=== PATIENT | female | born 1995 | race Caucasian/White ===

== ENCOUNTER → 2016-10-04 | Outpatient (CLI) | payer OTHER ==
[~2016-10-04] MED LIST: No Home Meds
--- NOTE | 2016-10-05 05:10 | REP ---
Clinical: Anatomical evaluation. Comparison: None . Findings: Examination demonstrates a single live intrauterine in cephalic presentation. motion is identified by technologist. Placenta is noted anteriorly and grade zero without evidence for placenta previa or abruption. Amniotic fluid volume is normal. Cervix measures 3.1 cm in length and appears closed. No evidence for nuchal cord. Gestational age by LMP 17 weeks 4 days with BRIANNA 03/10/2017 . Gestational age by current measurements 21 weeks 0 days with BRIANNA 02/14/2017 . FHR equals 131 beats per minute. BPD 5.0 cm 21 weeks 0 days HC 19.1 cm 21 weeks 2 days AC 15.7 cm 20 weeks 6 days FL 3.3 cm 20 weeks 3 days HL 3.3 cm 21 weeks 0 days HC/AC ratio 1.21 Estimated weight 373 grams ( 40th percentile). Anatomical assessment demonstrates normal structures including cranium, choroid plexus, cavum, cerebellum/posterior fossa, facial features, lungs, four-chamber heart/ventricular outflow tracts, diaphragm, stomach, cord insertion/three-vessel cord, kidneys/bladder, spine, and extremities. Impression: Single live intrauterine in cephalic presentation. Anatomical assessment is complete and normal. Signed by Ho Temple MD 10/05/2016 05:02 A
== END ==
LOC: M RAD 15:48
PROVIDERS: ATTEND Obstetrics & Gynecology
DX: Z36 Encounter for antenatal screening of mother (principal); Z3A.21 21 weeks gestation of pregnancy

== ENCOUNTER 2017-02-09 01:51 | Inpatient (IN) | payer OTHER ==
[2017-02-09] VITALS (32 sets, daily range): BP systolic 107–150; BP diastolic 56–95
[~2017-02-09] VITALS: Ht 165.1 cm; Wt 75.0 kg
[2017-02-09] MEDS ORDERED: PENICILLIN G POTASSIUM 5 MU VIAL As Ordered ONE (02:30)
[2017-02-09] MEDS ORDERED: LACTATED RINGER'S 1000 ML IV STA (02:35)
[2017-02-09] MEDS ORDERED: PENICILLIN G POTASSIUM IV 5 MU in D5W MINI-BAG PLUS 100 ML IV STA (02:35)
[2017-02-09 02:38] LABS: MEAN CORPUSCULAR HEMOGLOBIN 35.7 pg (27.0-33.0); MEAN CORPUSCULAR HGB CONC 34.8 g/dl (32.0-36.5); MEAN CORPUSCULAR VOLUME 102.5 fl (80.0-96.0); RED CELL DISTRIBUTION WIDTH 13.3 % (11.5-14.5); WHITE BLOOD COUNT 8.2 K/mm3 (4.0-10.0)
[2017-02-09] MEDS ORDERED: PRENTAB55 PO (02:41)
[2017-02-09] MEDS ORDERED: FENTANYL 2MCG/ML ROPIVACAINE 0.2% IN 0.9% NACL 200ML IVBAG As Ordered ONE (02:56)
[2017-02-09] MEDS ORDERED: EPIDURAL/PCA KEYS XX PRN (03:25)
[2017-02-09] MEDS ORDERED: ONDANSETRON 4MG/2ML VIAL (J2405) IV PRN ×3 (03:25→21:15)
[2017-02-09] MEDS ORDERED: ePHEDrine SULFATE 25 MG/5 ML(5MG/ML) SYRINGE IV PRN (03:25)
[2017-02-09] MEDS ORDERED: diphenhydrAMINE INJ 50MG/ML VIAL (J1200) IV PRN (03:25)
[2017-02-09] MEDS ORDERED: FENTANYL/ROPIVACAINE/NACL BAG 200 ML EPIDURAL SCH (03:25)
[2017-02-09] MEDS ORDERED: NALOXONE INJ 0.4 MG/1 ML VIAL (J2310) IV PRN (03:25)
[2017-02-09] MEDS ORDERED: REFRIGERATOR IV KEYS XX PRN (03:25)
[2017-02-09] MEDS ORDERED: EPIDURAL COMMENT XX SCH (03:25)
[2017-02-09] MEDS ORDERED: OXYTOCIN 30 UNITS IN 0.9% NaCl 500ML IV BAG (J2590) As Ordered ONE (07:04)
[2017-02-09] MEDS: PENICILLIN G POTASSIUM IV 2.5 MU in D5W 100 ML IV SCH ×2 (07:19→10:45)
--- NOTE | 2017-02-09 09:14 | IPNPDOC ---
Text Note Date of Service The patient was seen on 02/09/17. NOTE SBAR from Dr Ashton ~[id number]. Chart reviewed. Has an epidural NST Cat 1 Cx C/C/+2/LOP Start pushing Sessions Jose HARRIS, I+O VSJose I+O Laboratory Tests 02/09/17 02:32 Red Blood Count 2.87 L, Mean Corpuscular Volume 102.5 H, Mean Corpuscular Hemoglobin 35.7 H, Mean Corpuscular Hemoglobin Concent 34.8, Red Cell Distribution Width 13.3 Vital Signs Date Time Temp Pulse Resp B/P (MAP) Pulse Ox O2 Delivery O2 Flow Rate FiO2 02/09/17 08:11 79 18 117/71 (86) 02/09/17 07:11 99.3 I&O- Last 24 Hours up to 6 AM 02/09/17 06:00 Intake Total 180 ml Output Total 800 ml Balance -620 ml SESSIONS,ERIKA Arce MD Feb 09, 2017 09:14
--- NOTE | 2017-02-09 10:58 | DNPDOC ---
[facility] Delivery Note Delivery Note DATE OF DELIVERY: [id number] PREDELIVERY DIAGNOSIS: 38+6/7 weeks' gestation and labor. POST DELIVERY DIAGNOSIS: Delivered. PROCEDURE: Spontaneous vaginal delivery BLOOD BANK LABORATORY PROFESSIONAL: Dr. Lewis ANESTHESIA: Epidural ESTIMATED BLOOD LOSS: 300 mL. FINDINGS: 7 pound 6 ounce male infant, Score 8/9 DELIVERY SUMMARY: Good effort against a very tight perineum. Mod'd ritgen needed, uncomplicated. No signif delay of the vtx or either shoulder. To abd, vigorous. Cord C/C by FOB. Placenta intact with slight traction and fundal massage. Pit going wide open, fundus firm. Bilat inner labial longitudinal lacs repaired with 4-0 vicryl in standard running fashion. Perineum intact. Good cosmesis/hemostasis. Chadwick LEWIS,ERIKA Arce MD Feb 09, 2017 10:58
[2017-02-09] MEDS ORDERED: MEASLES,MUMPS,RUBELLA VACCINE INJ (MMR-II) (90707) SC SCH (11:45)
[2017-02-09] MEDS ORDERED: METOCLOPRAMIDE INJ 10MG/2ML VIAL (J2765) IV PRN (11:45)
[2017-02-09] MEDS ORDERED: ACETAMINOPHEN TAB 650MG DOSE (2X325MG) PO PRN (11:45)
[2017-02-09] MEDS ORDERED: RHOGAM 300 MCG (1500 IU) INJ (J2790) IM SCH (11:45)
[2017-02-09] MEDS ORDERED: DIBUCAINE 1% OINTMENT 30GM TOP PRN (11:45)
[2017-02-09] MEDS ORDERED: OXYTOCIN DRIP 30 UNITS in APPROPRIATE DILUENT 1 EA IV SCH (11:45)
[2017-02-09] MEDS: IBUPROFEN 800 MG TAB PO PRN (12:49)
[2017-02-09 19:23] LABS: MEAN CORPUSCULAR HEMOGLOBIN 36.2 pg (27.0-33.0); MEAN CORPUSCULAR HGB CONC 35.3 g/dl (32.0-36.5); MEAN CORPUSCULAR VOLUME 102.6 fl (80.0-96.0); RED CELL DISTRIBUTION WIDTH 13.2 % (11.5-14.5); WHITE BLOOD COUNT 13.1 K/mm3 (4.0-10.0)
--- NOTE | 2017-02-09 19:29 | IPNPDOC ---
Text Note Date of Service The patient was seen on 02/09/17. NOTE Called by floor nursing approx 2 hr's ago and told that Pt had not voided yet and that she was swollen (no significant swelling at time of delivery/repair), I rec'd a straight cath and a new DTV 6 hrs (routine). They called again a bit later and pt with significant discomfort now, worsening bilat external swelling and I asked them to place a Gimenez and get a CBC and told them I was coming in. On exam, she has stable vitals but is in obvious discomfort. Bilat labial swelling noted that is significant compared to just after delivery. Also some old clot present at the introitus that I removed, and some further clot behind it, but she could not tolerate a bimanual exam or vaginal/uterine sweep, nor could she tolerate the labial separation that I would need to place a Gimenez. Therefore I rec'd we go the OR for an EUA and Gimenez placement and ultrasound, perhaps D&C if significant IU blood present or active bleeding, perhaps hematoma evacuation if one is located (low suspicion of this, swelling is bilat and encompasses the entire EFG). Stat CBC ordered and also confirmed that her T &S is still good in case of need for T&C/transfusion. Informed consent obtained , all ??'s answered by she and . Chadwick MEJIA VSJose, I+O VSJose I+O Laboratory Tests 02/09/17 02:32 Red Blood Count 2.87 L, Mean Corpuscular Volume 102.5 H, Mean Corpuscular Hemoglobin 35.7 H, Mean Corpuscular Hemoglobin Concent 34.8, Red Cell Distribution Width 13.3 Vital Signs Date Time Temp Pulse Resp B/P (MAP) Pulse Ox O2 Delivery O2 Flow Rate FiO2 02/09/17 17:40 98.2 67 18 141/95 (110) I&O- Last 24 Hours up to 6 AM 02/09/17 06:00 Intake Total 180 ml Output Total 800 ml Balance -620 ml ERIKA LEWIS MD Feb 09, 2017 19:29
[2017-02-09] MEDS ORDERED: MIDAZOLAM INJ 2 MG/2 ML VIAL (J2250) As Ordered ONE (20:08)
[2017-02-09] MEDS ORDERED: fentaNYL 100 MCG/2 ML INJECTION (J3010) As Ordered ONE (20:08)
[2017-02-09] MEDS ORDERED: LIDOCAINE 2% INJ 100 MG/5 ML SYRINGE As Ordered ONE (20:08)
[2017-02-09] MEDS ORDERED: dexameTHASONE 4 MG/ML 1ML VIAL (J1100) As Ordered ONE (20:08)
[2017-02-09] MEDS ORDERED: ONDANSETRON 4MG/2ML VIAL (J2405) As Ordered ONE (20:08)
[2017-02-09] MEDS ORDERED: PROPOFOL 200 MG/20 ML VIAL As Ordered ONE (20:08)
[2017-02-09] MEDS ORDERED: KETOROLAC 60 MG/2 ML VIAL (J1885) As Ordered ONE (20:08)
[2017-02-09] MEDS ORDERED: ESTROGENS VAGINAL CREAM 30GM As Ordered ONE (20:28)
[2017-02-09] MEDS ORDERED: miSOPROStol 200 MCG TAB (S0191) As Ordered ONE ×2 (20:33→20:34)
[2017-02-09] MEDS: DOCUSATE SODIUM 100 MG CAP PO SCH (21:00)
[2017-02-09] MEDS ORDERED: MEPERIDINE INJ 25 MG/ML VIAL (J2175) As Ordered ONE (21:07)
[2017-02-09] MEDS: MEPERIDINE INJ 25 MG/ML VIAL (J2175) IV PRN ×2 (21:10→21:15)
[2017-02-09] MEDS ORDERED: fentaNYL 100 MCG/2 ML INJECTION (J3010) IV PRN (21:15)
[2017-02-09] MEDS ORDERED: LR 1,000 ML IV SCH (21:15)
[2017-02-09] MEDS ORDERED: PERCOCET 5MG/325MG TAB PO PRN (21:15)
[2017-02-09] MEDS ORDERED: miSOPROStol 200 MCG TAB (S0191) PR ONE (21:30)
[2017-02-09] MEDS: LR 1,000 ML IV SCH (22:26)
[2017-02-09] MEDS ORDERED: MORPHINE 10 MG/ML 1ML VIAL IM ONE (22:30)
[2017-02-10] VITALS (7 sets, daily range): BP systolic 119–139; BP diastolic 74–85
[2017-02-10 00:20] LABS: BASO % 0.1 % (0.0-1.0); EOS % 0.2 % (0.0-3.0); LARGE UNSTAINED CELL # 0.1 K/mm3 (0.0-0.4); LARGE UNSTAINED CELL % 0.7 % (0.0-4.0); LYMPH # 1.3 K/mm3 (1.5-6.5); LYMPH % 9.3 % (24.0-44.0); MEAN CORPUSCULAR HEMOGLOBIN 36.3 pg (27.0-33.0); MEAN CORPUSCULAR VOLUME 103.6 fl (80.0-96.0); MONO # 0.3 K/mm3 (0.0-0.8); MONO % 2.1 % (0.0-5.0); NEUTROPHILS # 11.6 K/mm3 (1.8-7.7); NEUTROPHILS % 87.6 % (36.0-66.0); PLATELET COUNT, AUTOMATED 197 k/mm3 (150-450); RED CELL DISTRIBUTION WIDTH 13.4 % (11.5-14.5); WHITE BLOOD COUNT 13.3 K/mm3 (4.0-10.0)
[2017-02-10] MEDS: IBUPROFEN 800 MG TAB PO PRN ×3 (01:53→21:04)
[2017-02-10] MEDS: LR 1,000 ML IV SCH ×2 (04:34→13:30)
[2017-02-10] MEDS: PERCOCET 5MG/325MG TAB PO PRN ×3 (06:33→16:38)
[2017-02-10 07:01] LABS: MEAN CORPUSCULAR HEMOGLOBIN 36.1 pg (27.0-33.0); MEAN CORPUSCULAR HGB CONC 34.7 g/dl (32.0-36.5); RED CELL DISTRIBUTION WIDTH 13.5 % (11.5-14.5); WHITE BLOOD COUNT 10.3 K/mm3 (4.0-10.0)
--- NOTE | 2017-02-10 08:25 | IPNPDOC ---
Text Note Date of Service The patient was seen on 02/10/17. NOTE PPD#1 POD#1 s/p but then c/b a PPH with a D&C and left labial hematoma evacuation/ closure approx 10 hrs p delivery S: Pt states doing well but has not been OOB yet since her surgery last night. Pain controlled with Motrin/Percocet, lochia decreasing, Gimenez in place, tolerating a regular diet. No f/c/n/v/MARQUEZ. Breast feeding. O: normotensive, nml HR, afebrile H: RRR no m/g/r L: CTA b/l no w/c/r/r Abd: soft, appropriately tender, and FF at U-1/fundus slight tenderness Ext: no c/c/e EFG: Both labia swollen same as last night after surgery, R>L, not increased in size however. Vag packing removed and expected amt lochia noted to egress UO adequate last 4 hrs, 600, last hour 75 cc's This AM HGB 6.6, HCT 18.9, PLT 181 A/P: S/P c/b a PPH with a D&C and left labial hematoma evacuation/closure approx 10 hrs p delivery, PPD#1, POD#1 (last evening). afebrile, good pain control. -Transfuse 2 units PRBC's with CBC 6 hrs after -Premedicate with 325 tylenol and 50 benadryl PO, had a single percocet 1 hr ago -Routine care, ambulate today after transfusion -will continue to monitor - likely discharge home tomorrow Sessions Jose HARRIS I+O Jose ROMERO I+O Laboratory Tests 02/09/17 19:17 Red Blood Count 2.44 L, Mean Corpuscular Volume 102.6 H, Mean Corpuscular Hemoglobin 36.2 H, Mean Corpuscular Hemoglobin Concent 35.3, Red Cell Distribution Width 13.2 02/10/17 00:11 Red Blood Count 2.10 L, Mean Corpuscular Volume 103.6 H, Mean Corpuscular Hemoglobin 36.3 H, Mean Corpuscular Hemoglobin Concent 35.0, Red Cell Distribution Width 13.4, Neutrophils (%) (Auto) 87.6 H, Lymphocytes (%) (Auto) 9.3 L, Monocytes (%) (Auto) 2.1, Eosinophils (%) (Auto) 0.2, Basophils (%) (Auto ) 0.1, Neutrophils # (Auto) 11.6 H, Lymphocytes # (Auto) 1.3 L, Monocytes # ( Auto) 0.3, Eosinophils # (Auto) 0.0, Basophils # (Auto) 0.0 02/10/17 06:38 Red Blood Count 1.82 L, Mean Corpuscular Volume 104.0 H, Mean Corpuscular Hemoglobin 36.1 H, Mean Corpuscular Hemoglobin Concent 34.7, Red Cell Distribution Width 13.5 Vital Signs Date Time Temp Pulse Resp B/P (MAP) Pulse Ox O2 Delivery O2 Flow Rate FiO2 02/10/17 07:03 18 02/10/17 06:33 Room Air 02/10/17 06:00 98.1 73 125/77 (93) 97 02/09/17 20:52 2 I&O- Last 24 Hours up to 6 AM 02/10/17 05:59 Intake Total 1250 ml Output Total 4925 ml Balance -3675 ml SESSIONS,ERIKA Arce MD Feb 10, 2017 08:25
[2017-02-10] MEDS ORDERED: diphenhydrAMINE 25 MG CAP PO ONE (08:30)
[2017-02-10] MEDS: PRENATAL VITAMINS CHEWABLE TABLET PO SCH (08:43)
[2017-02-10] MEDS: DOCUSATE SODIUM 100 MG CAP PO SCH ×2 (08:43→21:00)
[2017-02-10] MEDS ORDERED: ACETAMINOPHEN 325 MG TAB PO ONE (08:45)
[2017-02-10 18:59] LABS: MEAN CORPUSCULAR HEMOGLOBIN 33.7 pg (27.0-33.0); MEAN CORPUSCULAR HGB CONC 34.4 g/dl (32.0-36.5); RED CELL DISTRIBUTION WIDTH 16.2 % (11.5-14.5); WHITE BLOOD COUNT 11.4 K/mm3 (4.0-10.0)
--- NOTE | 2017-02-10 19:55 | IPNPDOC ---
Text Note Date of Service The patient was seen on 02/10/17. NOTE After 2 Units PRBC's, HCT up to 24.7, PLT 185. Expected increase. Pt feels much better. UO is stellar and she has ambulated several times although is still very stiff, guarded due to her labia being very swollen/sore. VSS, T 100.0 after transfusion noted (common), Labia still swollen bilat R>L although slight improvement noted and the tissue is starting to soften, skin not as taut as this AM/last night. Can remove one IV and saline lock her other. PLan on CBC in the AM, maintain carpio due to level of swelling, would likely not be able to void. Sessions MD ROMERO,Jose, I+O VS, Jose I+O Laboratory Tests 02/10/17 00:11 Red Blood Count 2.10 L, Mean Corpuscular Volume 103.6 H, Mean Corpuscular Hemoglobin 36.3 H, Mean Corpuscular Hemoglobin Concent 35.0, Red Cell Distribution Width 13.4, Neutrophils (%) (Auto) 87.6 H, Lymphocytes (%) (Auto) 9.3 L, Monocytes (%) (Auto) 2.1, Eosinophils (%) (Auto) 0.2, Basophils (%) (Auto ) 0.1, Neutrophils # (Auto) 11.6 H, Lymphocytes # (Auto) 1.3 L, Monocytes # ( Auto) 0.3, Eosinophils # (Auto) 0.0, Basophils # (Auto) 0.0 02/10/17 06:38 Red Blood Count 1.82 L, Mean Corpuscular Volume 104.0 H, Mean Corpuscular Hemoglobin 36.1 H, Mean Corpuscular Hemoglobin Concent 34.7, Red Cell Distribution Width 13.5 02/10/17 18:45 Red Blood Count 2.52 L, Mean Corpuscular Volume 98.0 #H, Mean Corpuscular Hemoglobin 33.7 H, Mean Corpuscular Hemoglobin Concent 34.4, Red Cell Distribution Width 16.2 H Vital Signs Date Time Temp Pulse Resp B/P (MAP) Pulse Ox O2 Delivery O2 Flow Rate FiO2 02/10/17 18:22 99.5 72 20 131/85 (100) 96 Room Air 02/09/17 20:52 2 I&O- Last 24 Hours up to 6 AM 02/10/17 05:59 Intake Total 1250 ml Output Total 4925 ml Balance -3675 ml DEBBIE,ERIKA Arce MD Feb 10, 2017 19:54
[2017-02-11 01:55] VITALS: BP 145/83
[2017-02-11] MEDS: IBUPROFEN 800 MG TAB PO PRN ×3 (05:28→23:10)
[2017-02-11 06:33] VITALS: BP 140/90
--- NOTE | 2017-02-11 06:50 | IPNPDOC ---
Text Note Date of Service The patient was seen on 02/11/17. NOTE PPD#2 POD#2 s/p but then c/b a PPH with a D&C and left labial hematoma evacuation/ closure approx 10 hrs p delivery s/p 2 units PRBC's yest. S: Pt states doing well, pain improved, has not been OOB and ambulatory. Pain controlled with Motrin, lochia decreasing, Carpio in place, tolerating a regular diet. No f/c/n/v/MARQUEZ. Breast feeding with small amt bottle supplementation. O: normotensive, nml HR, afebrile Abd: soft, appropriately tender, and FF at U-3 Ext: no c/c/e EFG: Both labia significantly improved but swelling still present, color is less red and skin is less taut, smaller in size as well UO adequate CBC pending this AM A/P: S/P c/b a PPH with a D&C and left labial hematoma evacuation/closure approx 10 hrs p delivery with 2 units blood yest. afebrile, good pain control. -Routine care, encourage ambulation -Cont carpio until tomorrow morning -will continue to monitor -likely discharge home tomorrow if passes DTV Sessions VS,Jose I+O VSJose I+O Laboratory Tests 02/10/17 18:45 Red Blood Count 2.52 L, Mean Corpuscular Volume 98.0 #H, Mean Corpuscular Hemoglobin 33.7 H, Mean Corpuscular Hemoglobin Concent 34.4, Red Cell Distribution Width 16.2 H Vital Signs Date Time Temp Pulse Resp B/P (MAP) Pulse Ox O2 Delivery O2 Flow Rate FiO2 02/11/17 06:33 98.4 67 16 140/90 (107) 02/11/17 00:51 98 02/10/17 18:22 Room Air 02/09/17 20:52 2 I&O- Last 24 Hours up to 6 AM 02/11/17 06:00 Intake Total 1490 ml Output Total 5725 ml Balance -4235 ml SESSIONS,ERIKA Arce MD Feb 11, 2017 06:50
[2017-02-11 06:52] LABS: MEAN CORPUSCULAR HEMOGLOBIN 35.1 pg (27.0-33.0); MEAN CORPUSCULAR VOLUME 95.5 fl (80.0-96.0); RED CELL DISTRIBUTION WIDTH 15.9 % (11.5-14.5); WHITE BLOOD COUNT 11.3 K/mm3 (4.0-10.0)
[2017-02-11 07:00] LABS: MEAN CORPUSCULAR HGB CONC 36.7 g/dl (32.0-36.5)
[2017-02-11] MEDS: DOCUSATE SODIUM 100 MG CAP PO SCH ×2 (09:49→21:27)
[2017-02-11] MEDS: PRENATAL VITAMINS CHEWABLE TABLET PO SCH (09:49)
[2017-02-11 10:00] VITALS: BP 137/89
[2017-02-11] MEDS ORDERED: SLF 3 ML SYR IV PRN (10:45)
--- NOTE | 2017-02-11 11:08 | RO ---
DATE OF PROCEDURE: 02/09/2017 PREOPERATIVE DIAGNOSIS: hemorrhage and need for exam, ultrasound under anesthesia. POSTOPERATIVE DIAGNOSIS: hemorrhage, left labial hematoma. PROCEDURE: 1. Uterine cavity curettage. 2. Left and right laceration revisions. 3. Left labial hematoma evacuation and closure. FINDINGS: In the operating room on ultrasound had a 5 cm separation consistent with clot in the uterus with approximately 100 mL evacuated from the uterus. About 200 mL were evacuated from the vagina. Also present was an unstable left labial hematoma and a stable right labial hematoma. SURGEON: Mario Genao MD OCCUPATIONAL THERAPY AIDES TEACHER: ANESTHESIA: General endotracheal. ESTIMATED BLOOD LOSS: 300 mL. DRAINS: Gimenez catheter with 1000 mL of cb urine at the end of the case. FLUID REPLACEMENT: 1000 mL of Lactated Ringer's. ANTIBIOTICS: No preoperative antibiotics. SPECIMENS: None. INDICATION: The patient had an uncomplicated and straight forward routine vaginal delivery with small longitudinal interlabial lacerations bilaterally that were repaired in a normal fashion directly after delivery in order to assist the mother in not having to much pain with urination. At the time of delivery, neither laceration was bleeding and there was no swelling at all of the vagina or the labia at time of pushing or delivery. Surprisingly, approximately 6-8 hours after delivery I was called for the patient being unable to void and with significant swelling of her labia noted by the nurse. The nurse was unable to do a straight cath and due to the patient's discomfort and significant labial edema , I was asked to examine the patient. I did so and noted a significant amount of clots sitting at the introitus as well. I did a limited exam due to the patient's discomfort and realized that the clot was tracking from the vaginal orifice all the way up into the vagina and likely into the uterus as well. I also saw that with the amount of swelling present there was very likely a hematoma somewhere, although I could not tell the exact location in the room due to the patient's discomfort. Therefore, informed consent was obtained for an exam under anesthesia and any and all procedures based on my findings at that time. Consent for transfusion as well was discussed and obtained. DESCRIPTION OF PROCEDURE: The patient was taken to the operating room with an IV in place, placed in the low lithotomy position. A second IV was placed at this time. She was prepped and draped in a normal sterile fashion and prior to starting the case, I did a quick abdominal ultrasound which revealed approximately 5 cm of uterine wall separation and obvious clot in the uterine cavity. I placed a speculum into the vagina and with ringed forceps was able to remove approximately 200 mL of clot from the vagina and the cervical opening. A tenaculum was placed on the anterior lip of the cervix and a 12 mm curved suction curette was placed into the uterine cavity. I confirmed with the ultrasound that it was in the correct location and I did so by holding onto the probe through the blue drape with gel already placed there prior to placing the blue drape. I then engaged the suction and approximately 100 mL of clot was removed from the uterine cavity. There was no brisk bleeding from the uterus. It was obviously all old blood clots. I confirmed then with ultrasound again that the separation of the anterior and posterior endometrial surfaces was approximately 1.5 cm with no further significant blood clots present. I then introduced a banjo curette and did a gentle sharp curettage of all surfaces of the uterus to the fundus and out. This was uncomplicated and did not produce much in the way of clot or debris. I removed the tenaculum and then turned my attention to the labia. Both labia were significantly swollen, however the patient's right side was soft and other than a very small area at the posterior aspect of the closure, the prior labial laceration closure there was no significant collection of blood clot or bleeding. A single figure-of-8 suture using #3-0 Vicryl at the posterior aspect of the right labial laceration produced hemostasis and although it was swollen there was nothing palpable or visible involving the right labia. The left labia was significantly more edematous and there was a significant amount of clot coming out the posterior aspect of the aforementioned labial laceration closure. I opened this closure completely and several edges were noted to be bleeding, which were deep to the skin edges. Of note, these areas were not bleeding whatsoever at the time of reapproximation of the ruptured inner wall of the left labia directly after delivery. This potential space also tracked up approximately half of my pinky to up around the left side of the clitoris. All the clot in this area was evacuated. The edges were scrubbed clean with a Ray-Shukri sponge and I closed the space with a few interrupted sutures of #3- 0 Vicryl taking care to stay away from the clitoris and surrounding tissue. Once the space was closed I then ran suture from superior to inferior effectively closing off the hematoma area. Hemostasis and good cosmesis noted bilaterally at the end of the case. I performed one last ultrasound of the uterus prior to finishing the case and again noted an endometrial stripe and thickness of approximately 1.3 cm, no significant amount of debris or clot in the uterine cavity all the way to the fundus. Hemostasis was noted from all surgical surfaces. The vagina was clear and the swelling bilaterally was noted to be significantly less, especially on the patient's left. 600 mcg cytotec placed per rectum at the end of the case. All instruments were removed from the vagina. The patient was awakened from general anesthesia and transferred to the postanesthesia care unit (PACU) in stable condition with a Gimenez catheter placed at the end of the case. All counts were correct at the end of the case including sponge, needle and instruments. JACK
[2017-02-11 14:00] VITALS: BP 139/83
[2017-02-11] MEDS: SLF 3 ML SYR IV SCH ×2 (14:08→22:00)
[2017-02-11 18:00] VITALS: BP 136/92
[2017-02-11 22:33] VITALS: BP 122/64
[2017-02-12 02:02] VITALS: BP 135/74
[2017-02-12] MEDS: IBUPROFEN 800 MG TAB PO PRN (06:00)
[2017-02-12] MEDS: SLF 3 ML SYR IV SCH (06:00)
--- NOTE | 2017-02-12 07:48 | IPNPDOC ---
Text Note Date of Service The patient was seen on 02/12/17. NOTE PPD#3 POD#3 s/p but then c/b a PPH with a D&C and left labial hematoma evacuation/ closure approx 10 hrs p delivery s/p 2 units PRBC's on POD1 S: Pt states doing well, pain cont's to improve, has been OOB and ambulatory. Pain controlled with Motrin/rare percocet, lochia decreasing, Carpio in place, tolerating a regular diet. No f/c/n/v/MARQUEZ. Breast feeding with small amt bottle supplementation. O: normotensive, nml HR, afebrile Abd: soft, appropriately tender, and FF at U-3 Ext: no c/c/e EFG: Both labia significantly improved but swelling still present, color is less red and skin is less taut, smaller in size as well, R>L UO adequate CBC yest HCT 25, stable A/P: S/P c/b a PPH with a D&C and left labial hematoma evacuation/closure approx 10 hrs p delivery with 2 units blood. afebrile, good pain control. -d/c carpio, if meets 6 hr DTV today can be discharged Sessions VSJose I+O Jose ROMERO I+O Vital Signs Date Time Temp Pulse Resp B/P (MAP) Pulse Ox O2 Delivery O2 Flow Rate FiO2 02/12/17 06:00 98.0 70 18 99 Room Air 02/12/17 02:02 135/74 (94) 02/09/17 20:52 2 I&O- Last 24 Hours up to 6 AM 02/12/17 06:00 Intake Total 525 ml Output Total 3875 ml Balance -3350 ml DEBBIE,ERIKA Arce MD Feb 12, 2017 07:48
[2017-02-12] MEDS: PRENATAL VITAMINS CHEWABLE TABLET PO SCH (08:11)
[2017-02-12] MEDS: DOCUSATE SODIUM 100 MG CAP PO SCH (08:11)
[2017-02-12] MEDS ORDERED: COLA100C5 PO (10:28)
[2017-02-12] MEDS ORDERED: IBUP-1114 PO (10:28)
[2017-02-12] MEDS ORDERED: OXYC1TAB23 PO (10:28)
[2017-02-12] MEDS ORDERED: ACET50TA PO (10:28)
--- NOTE | 2017-02-12 17:03 | DS.PDOC ---
Discharge Summary General Date of Admission Feb 09, 2017 at 02:12 Date of Discharge [id number] Discharge Summary PROCEDURES PERFORMED DURING STAY: spontaneous vaginal delivery, Dilation + Curettage, Left labial hematoma evacuation and secondary closure, 2 units PRBC' s transfused. ADMITTING DIAGNOSIS: 1. Active Labor DISCHARGE DIAGNOSES: 1. Healthy male infant 2. Subsequent hemorrhage 3. Bilateral labial hematomas, left side unstable 4. 2 units blood HOSPITAL COURSE: Admitted for active labor and delivery. Uncomplicated, see delivery note. 8-10 hrs after delivery developed a hemorrhage and bilateral labial hematomas. In the operating room a D&C was done and a left labial exploration and secondary closure wa sperformed. This was all done the evening of her delivery. The next day her HCT fawn's at ~18 and she was transfused with 2 units of blood. Her discharge HCT was ~25. Her carpio was maintained due to significant swelling until this AM. She was d/c'd this AM after meeting her due to void. DISCHARGE MEDICATIONS: Motrin, Tylenol, Colace, Lanolin, Dibucaine, percocet Physical exam: see note from this morning LABORATORY DATA: Please see below. ACTIVITY: as tolerated. Nothing in vagina for 6-8 weeks. DIET: regular DISPOSITION:stable, f/u appt in 1-[address] Sessions TIME SPENT ON DISCHARGE: Greater than 15 minutes. Sessions Vital Signs/I&Os Vital Signs Date Time Temp Pulse Resp B/P (MAP) Pulse Ox O2 Delivery O2 Flow Rate FiO2 02/12/17 06:00 98.0 70 18 99 Room Air 02/12/17 02:02 135/74 (94) 02/09/17 20:52 2 I&O- Last 24 Hours up to 6 AM 02/12/17 05:59 Intake Total 525 ml Output Total 4675 ml Balance -4150 ml Discharge Medications Scheduled Docusate Sodium (Colace) 100 Mg Cap, 100 MG PO BID, (Reported) Multivitamins/ ( 19) 1 Tab Tab, 1 TAB PO DAILY, (Reported) Scheduled PRN Acetaminophen (Mapap) 500 Mg Tab, 1,000 MG PO Q4HP PRN for PAIN SCALE 1-5, ( Reported) Ibuprofen (Ibuprofen) 400 Mg Tab, 800 MG PO Q8HP PRN for PAIN SCALE 6-10, ( Reported) Oxycodone/Acetaminophen (Oxycodone/Acetaminophen 5-325 mg) 1 Tab Tab, 1 TAB PO Q4HP PRN for PAIN SCALE 1-5, (Reported) Oxycodone/Acetaminophen (Oxycodone/Acetaminophen 5-325 mg) 1 Tab Tab, 2 TAB PO Q4HP PRN for PAIN SCALE 6-10, (Reported) Allergies Coded Allergies: No Known Allergies (Unverified , 07/05/15) ERIKA LEWIS MD Feb 12, 2017 17:02
== END 2017-02-12 13:20 | disposition home or self-care (01) | DRG 767 ==
LOC: M LDO 01:51 → M LDI 02:12 → M OBS 21:49
PROVIDERS: ADMIT Obstetrics & Gynecology; ATTEND Obstetrics & Gynecology
PROC: 10E0XZZ Delivery of Products of Conception, External Approach (ICD-10-PCS; 2017-02-09)
PROC: 0HQ9XZZ Repair Perineum Skin, External Approach (ICD-10-PCS; 2017-02-09)
PROC: 0HQ9XZZ Repair Perineum Skin, External Approach (ICD-10-PCS; 2017-02-09)
PROC: 10D17ZZ Extraction of Products of Conception, Retained, Via Natural or Artificial Opening (ICD-10-PCS; principal; 2017-02-09 19:01)
PROC: 30233N1 Transfusion of Nonautologous Red Blood Cells into Peripheral Vein, Percutaneous Approach (ICD-10-PCS; 2017-02-10)
DX: O72.1 Other immediate postpartum hemorrhage (principal); O71.7 Obstetric hematoma of pelvis; Z3A.38 38 weeks gestation of pregnancy; Z37.0 Single live birth; O70.0 First degree perineal laceration during delivery; Z79.899 Other long term (current) drug therapy

== ENCOUNTER → 2017-02-22 | Outpatient (CLI) | payer OTHER ==
[~2017-02-22] MED LIST changes: +ACET50TA PO; +COLA100C5 PO; +IBUP-1114 PO; +OXYC1TAB23 PO; +PRENTAB55 PO
--- NOTE | 2017-02-22 16:10 | REP ---
Focused right breast sonography: History: Palpable abnormality in the right breast at 9 o'clock. The patient is lactating, recently . Findings: The right breast is scanned at 8 o'clock at the area of the palpable abnormality. A hypoechoic lesion is seen 1.5 x 0.7 x 1.2 cm and a o'clock located 8.2 cm from the nipple. The lesion demonstrates some Doppler flow. A few prominent ducts are also seen. Impression: BIRADS category three probably benign focused right breast sonography. Homogeneous slightly hypoechoic solid nodules seen at the site of the palpable lump. The likely differential possibilities include lactating adenoma and fibroadenoma. Follow up sonography recommended in 4-6 months. Sooner if the lesion progresses on follow-up clinical exam which is also recommended. Signed by Dre Olmstead MD 02/22/2017 04:40 P
== END ==
LOC: M RAD 12:58
PROVIDERS: ATTEND Obstetrics & Gynecology
DX: N63 Unspecified lump in breast (principal)